=== PATIENT | female | born 1960 | race Caucasian/White ===

== ENCOUNTER 2025-01-18 17:41 | Observation (INO) ==
[2025-01-18] MEDS ORDERED: ZOFRAN INJ 4 MG VIAL ONE (17:49)
[2025-01-18] MEDS: ZOFRAN INJ 4 MG VIAL IVP ONE (18:08)
[2025-01-18] MEDS ORDERED: NS 1,000 ML IV 1,000 ML ONE (18:36)
[2025-01-18 18:48] LABS: MEAN PLATELET VOLUME 7.6 fL (7.4-11.0); RED CELL DISTRIBUTION WIDTH 13.9 % (11.6-16.5)
--- NOTE | 2025-01-18 19:24 | DR.GENAD ---
HPI Time Seen Time Seen by Provider: 01/18/25 18:30 PCP Primary Care Physician: Complaint/Symptoms Chief Complaint Doctors Comments: 64-year-old female had a iliac stent placed; gross swelling right inner upper thigh with pain per patient. Chief Complaint:: pt's son states that she had surgery today with and had a stent placed in the left leg. Since her surgery she has been in alot of pain and vomiting. pt states her left leg has been swelling up near her groin area. COVID-19 Coronavirus risk:travel/contact w/high risk person: No Has patient experienced Coronavirus symptoms: No Source History Provided: Patient and Family Member Mode of Arrival Mode of Arrival: Wheelchair Timing Onset of Chief Complaint: 01/18/25 PMH PMH Past Medical History: Yes Past Medical History: GERD and Hypertension Past Medical History Comment: polycystic kidney disease, spinal bifida, heart murmur, Past Surgical History: Yes Surgical History: Angioplasty/Stents, Hysterectomy and Other Past Surgical History Comment: esophagus stretched Family History History of Family Medical Conditions: Yes Family Medical History: Cancer and Hypertension Social History Does patient currently use any type of tobacco product: Yes Type of Tobacco Use: Cigarettes Alcohol Use: DAILY Do you use any recreational Drugs:: No Lives With: Alone Lives Where: Home Travel Risk Coronavirus risk:travel/contact w/high risk person: No Has patient experienced Coronavirus symptoms: No Infectious screening Have you traveled outside the country in the last 6 months?: No Isolation: Standard ROS Review of Systems Constitutional: No Symptoms Reported (Painful upper left leg with acute swelling. ) and See HPI Respiratoy: No Symptoms Reported Cardiovascular: No Symptoms Reported Gastrointestinal/Abdominal: No Symptoms Reported Neurological: No Symptoms Reported Musculoskeletal: No Symptoms Reported All Other Systems: Reviewed and Negative PE Vital Signs Vitals: Vital Signs Temperature 97.7 F Pulse Rate [Left] 75 Pulse Rate 62 Respiratory Rate 16 Respiratory Rate 20 Blood Pressure [Right Arm] 132/77 Blood Pressure [Right Arm] 121/75 Blood Pressure [Right Arm] 128/70 Blood Pressure 86/54 Blood Pressure 82/49 O2 Sat by Pulse Oximetry 100 O2 Sat by Pulse Oximetry 100 General Limitations: No Limitations Head Head Exam: Normal Inspection Eyes Eye exam: Normal Appearance ENT ENT Exam: Normal Exam Neck Neck Exam: Normal Inspection Chest Chest Inspection: Normal Inspection Respiratory Respiratory Exam: Normal Lung Sounds Bilat Respiratory Exam: Bilateral: Clear to Auscultation Cardiovascular Cardiovascular Exam: Regular Rate and Normal Rhythm Abdominal Exam Abdominal Exam: Normal Inspection, Normal Bowel Sounds and Soft Extremities Extremities Exam: Tenderness, Edema and Other (Gross swelling and ecchymosis of the proximal aspect of the left anterior thigh secondary to stent placement earlier today. Good capillary refill tenderness at the site of the swelling remainder of the extremity is warm and nontender to palpation. He still has good pulses distally. Currently ther) Back Back Exam: Normal Inspection Neurologic Neurological Exam: Alert and Oriented X3 COURSE Treatment Treatment: 5 pound send black bag placed on the site of bleeding and swelling left upper thigh Reevaluation 1st: Unchanged 2nd: Improved Consultation Consultation Comments: Dr. Wilkerson called the ER and let us know this patient was coming to the ER because of the swelling at the stent insertion site of the left upper left leg. After evaluation I discussed the findings with Dr. Wilkerson and we had placed a 5 pound sand bag on the site which helped tremendously and the patient even states it felt much better with the sandbag. The patient will be admitted she be started on IV fluids basic labs and Dr. Wilkerson said he would continue the orders himself. [facility] Labs Reviewed 01/18/25 18:00 Laboratory: WBC 14.0 X10^3/uL (3.6-10.0) H 01/18/25 18:00 RBC 3.39 X10^6/uL (3.5-5.4) L 01/18/25 18:00 Hgb 11.4 g/dL (12.0-16.0) L 01/18/25 18:00 Hct 34.4 % (36.0-47.0) L 01/18/25 18:00 MCV 101.6 fL (80.0-100.0) H 01/18/25 18:00 MCH 33.7 pg (27.0-34.0) 01/18/25 18:00 MCHC 33.2 g/dL (33.0-35.0) 01/18/25 18:00 RDW 13.9 % (11.6-16.5) 01/18/25 18:00 Plt Count 324 X10^3/uL (150.0-450.0) 01/18/25 18:00 MPV 7.6 fL (7.4-11.0) 01/18/25 18:00 Neut % (Auto) 57.1 % (42.0-75.0) 01/18/25 18:00 Lymph % (Auto) 36.1 % (21.0-51.0) 01/18/25 18:00 [place] % (Auto) 5.7 % (0.0-13.0) 01/18/25 18:00 Eos % (Auto) 0.4 % (0.9-2.9) L 01/18/25 18:00 Baso % (Auto) 0.7 % (0.2-1.0) 01/18/25 18:00 Neut # (Auto) 8.0 x10^3/uL (2.2-4.8) H 01/18/25 18:00 Lymph # (Auto) 5.1 X10^3/uL (1.3-2.9) H 01/18/25 18:00 [place] # (Auto) 0.8 x10^3/uL (0.3-0.8) 01/18/25 18:00 Eos # (Auto) 0.1 x10^3/uL (0.0-0.2) 01/18/25 18:00 Baso # (Auto) 0.1 X10^3/uL (0.0-0.1) 01/18/25 18:00 Absolute Nucleated RBC 0.1 /100WBC 01/18/25 18:00 Opioid Opioid Risk Tool Age ([place] if 16-45): No History of Preadolescent Sexual Abuse: No Total: 0 Total Score Risk Category: Low Risk Copyright: Amilcar ADDISON predicting aberrant behaviors Discharge Plan Diagnosis Discharge Problem: Hematoma of left thigh Discharge Plan Patient Disposition: ADMITTED INPATIENT Condition: Stable Prescriptions: No Action famotidine 20 mg tablet 20 mg PO DAILY aspirin 81 mg Tablet 81 mg PO DAILY lisinopril 40 mg tablet 40 mg PO QDAY Eliquis 5 mg tablet 5 mg PO QDAY Health Concerns: Post Hospitalization: new medications and changes needed to prevent readmission or further decline. Pt educated and given instructions on all concerns. Plan of Treatment: Continue with present treatment and follow up plan. Pt is to keep follow up appointment as instructed and take medications as ordered. Orders to Discharge Patient Discharge Orders: Transfer (Routine); Ordered 01/18/25 Ordered By: Meera Oneal Follow ups/Referrals Follow ups/Referrals: NFD,None [Primary Care Provider] - 3 days Instructions Stand Alone Forms: Find Help Web Site, Post Hospital Follow Up Care Print Language: [place]
[2025-01-18] MEDS: NS 1,000 ML IV 1,000 ML IV SCH (19:33)
[2025-01-18] MEDS ORDERED: TYLENOL 325 MG TAB PO PRN (23:33)
[2025-01-18] MEDS ORDERED: CONSULT PHARMACY - POTASSIUM & MAGNESIUM XX SCH (23:33)
[2025-01-18] MEDS ORDERED: ULTRAM PO PRN (23:33)
[2025-01-18] MEDS ORDERED: ZOFRAN INJ 4 MG VIAL IVP PRN (23:33)
[2025-01-18] MEDS ORDERED: MORPHINE SULFATE INJ 2 MG INJ IVP PRN (23:33)
[2025-01-18] MEDS ORDERED: NORCO 5/325 MG TAB PO PRN (23:33)
[2025-01-19 00:16] VITALS: BMI 18.8
[2025-01-19 04:50] LABS: MEAN PLATELET VOLUME 7.2 fL (7.4-11.0); RED CELL DISTRIBUTION WIDTH 14.1 % (11.6-16.5)
[2025-01-19 05:07] LABS: COR CA(FOR HYPOALB) 9.3 mg/dL (8.5-10.1); CREATININE 0.68 mg/dL (0.55-1.02); eGFR NON BLACK RACES > 60 (>60)
[2025-01-19] MEDS: ASPIRIN EC 81 MG PO SCH (09:24)
[2025-01-19] MEDS: ZESTRIL TAB 40 MG PO SCH (09:24)
[2025-01-19] MEDS: PEPCID TAB 20 MG PO SCH (09:25)
--- NOTE | 2025-01-19 11:21 | DR.H&P ---
H&P History & Physical for Day of: H&P Date: 01/18/25 Chief Complaint Chief Complaint: Swelling in left groin after puncture of left femoral vein several hours previous with stent placement of the left external iliac vein History of Present Illness History of Present Illness: This is a patient who is 64 years of age and has history of chronic DVT of the left leg who has had recent venogram showing significant stenosis of the femoral vein which was balloon dilated. We planned to stent the compressed left iliac vein but did not have a stent the appropriate size therefore we delayed and performed the stenting of the left iliac vein as an outpatient yesterday at the [facility] in [place], [place]. The patient tolerated the procedure very well .She been off her Eliquis for 4 days previously and had no hematoma at the end of the case and for several hours after that. She was home resting on the sofa and noted swelling in her left groin. She came to emergency room for evaluation. Hemoglobin was stable at 11.4 g. We applied pressure to this area and it had no further increase in size. She was be admitted for observation. Past Medical History Past Medical History: GERD and Hypertension Additional Medical History: deep vein thrombosis Past Surgical History Surgical History: Angioplasty/Stents and Hysterectomy Family History Family Medical History: Cancer and Hypertension Social History Does patient currently use any type of tobacco product: Yes Type of Tobacco Use: Cigarettes Packs per day or dips/chews per day: 1 Alcohol Use: Occasionally Drug Use: None Medications Home Medications: Home Medications Medication Instructions Recorded Confirmed Type apixaban 5 mg tablet (Eliquis) 5 mg PO QDAY 01/18/25 1 03/21/24 History aspirin 81 mg tablet 81 mg PO DAILY 01/18/2510/05 History famotidine 20 mg tablet 20 mg PO DAILY 01/18/2510/05 History lisinopril 40 mg tablet 40 mg PO QDAY 01/18/2501/18 History Allergies Allergies Allergy/AdvReac Type Severity Reaction Status Date / Time dexamethasone (From Decadron) Allergy Verified 12/29/24 07:07 Labs 01/19/25 04:23 01/19/25 04:23 Labs: Laboratory WBC 9.3 X10^3/uL (3.6-10.0) 01/19/25 04:23 RBC 3.09 X10^6/uL (3.5-5.4) L 01/19/25 04:23 Hgb 10.7 g/dL (12.0-16.0) L 01/19/25 04:23 Hct 31.4 % (36.0-47.0) L 01/19/25 04:23 MCV 101.6 fL (80.0-100.0) H 01/19/25 04:23 MCH 34.6 pg (27.0-34.0) H 01/19/25 04:23 MCHC 34.1 g/dL (33.0-35.0) 01/19/25 04:23 RDW 14.1 % (11.6-16.5) 01/19/25 04:23 Plt Count 234 X10^3/uL (150.0-450.0) 01/19/25 04:23 MPV 7.2 fL (7.4-11.0) L 01/19/25 04:23 Neut % (Auto) 69.6 % (42.0-75.0) 01/19/25 04:23 Lymph % (Auto) 23.4 % (21.0-51.0) 01/19/25 04:23 [place] % (Auto) 6.1 % (0.0-13.0) 01/19/25 04:23 Eos % (Auto) 0.5 % (0.9-2.9) L 01/19/25 04:23 Baso % (Auto) 0.4 % (0.2-1.0) 01/19/25 04:23 Neut # (Auto) 6.5 x10^3/uL (2.2-4.8) H 01/19/25 04:23 Lymph # (Auto) 2.2 X10^3/uL (1.3-2.9) 01/19/25 04:23 [place] # (Auto) 0.6 x10^3/uL (0.3-0.8) 01/19/25 04:23 Eos # (Auto) 0.0 x10^3/uL (0.0-0.2) 01/19/25 04:23 Baso # (Auto) 0.0 X10^3/uL (0.0-0.1) 01/19/25 04:23 Absolute Nucleated RBC 0.2 /100WBC 01/19/25 04:23 Sodium 138 mmol/L (136-145) 01/19/25 04:23 Corrected Sodium TNP 01/19/25 04:23 Potassium 4.2 mmol/L (3.5-5.1) 01/19/25 04:23 Chloride 104 mmol/L (98-107) 01/19/25 04:23 Carbon Dioxide 24.3 mmol/L (21-32) 01/19/25 04:23 BUN 13 mg/dL (7-18) 01/19/25 04:23 Creatinine 0.68 mg/dL (0.55-1.02) 01/19/25 04:23 Est GFR (MDRD) Af Amer > 60 (>60) 01/19/25 04:23 Est GFR (MDRD) Non-Af > 60 (>60) 01/19/25 04:23 Glucose 65 mg/dL (65-99) 01/19/25 04:23 Calcium 8.4 mg/dL (8.5-10.1) L 01/19/25 04:23 Corrected Calcium 9.3 mg/dL (8.5-10.1) 01/19/25 04:23 Total Bilirubin 0.50 mg/dL (0.2-1.0) 01/19/25 04:23 AST 19 Units/L (15-37) 01/19/25 04:23 ALT 12 Units/L (12-78) 01/19/25 04:23 Alkaline Phosphatase 65 Units/L (46-116) 01/19/25 04:23 Total Protein 6.1 g/dL (6.4-8.2) L 01/19/25 04:23 Albumin 2.9 g/dL (3.4-5.0) L 01/19/25 04:23 Globulin 3.2 g/dL (2.5-4.5) 01/19/25 04:23 Albumin/Globulin Ratio 0.9 Ratio (1.1-2.1) L 01/19/25 04:23 Review of Systems Constitutional: See HPI Eyes: No Symptoms Reported ENT: No Symptoms Reported Respiratory: No Symptoms Reported Cardiovascular: No Symptoms Reported Gastrointestinal: No Symptoms Reported Genitourinary: No Symptoms Reported Musculoskeletal: No Symptoms Reported Skin: No Symptoms Reported Neurological: No Symptoms Reported Physical Exam Vital Signs: Vital Signs Temperature 97.8 F Temperature 98.2 F Pulse Rate [Left] 83 Pulse Rate [Left] 85 Respiratory Rate 16 Respiratory Rate 16 Blood Pressure [Right Arm] 102/55 Blood Pressure [Right Arm] 123/61 O2 Sat by Pulse Oximetry 94 O2 Sat by Pulse Oximetry 97 Oriented: Normal, Time, Person and Place Eyes: Normal Ear: Normal Nose: Normal Throat: Normal Respiratory: Clear Throughout Cardiovascular: Normal and Other (Hematoma of left groin. Patient has been hemodynamically stable. Hematoma was marked and has not increased in size since initial evaluation in the emergency room) : Normal Auscultation: Bowel Sounds: Normal Palpation: Normal Tenderness: Normal Skin: Normal Musculoskeletal: Normal Psychiatric: Normal Mood Description: Calm Affect: Normal Speech Pattern: Clear and Appropriate Assessment/Plan (1) Hematoma of left thigh: Status: Acute Plan: Will be admitted for observation. Will apply pressure to this area and monitor her hemoglobin very carefully. Review H&P Reviewed: Yes
[2025-01-19 11:55] VITALS: BP 101/63; PULSE 75; RESP 17; TEMP 97.9; O2SAT 99
--- NOTE | 2025-01-19 13:46 | W.DIS.FURT ---
Summary of Discharge Discharge Summary of Date Date of Exam: 01/19/25 Admission Date Date of Admission: 01/18/25 Admission Diagnosis Patient Problems (Updated 01/18/25 @ 21:17 by Meera Oneal) Hematoma of left thigh (Acute) S70.12XA Hospital Course: This is a 64-year-old female who had stenting of the left iliac vein yesterday as an outpatient and did well during the case and in the PACU but several hours later developed a hematoma in her left groin with pain. She was seen in the emergency room and was admitted for observation. Hemoglobin has been stable. It was 11.4 in admission and is now 10.7. Swelling is markedly decreased and the pain is resolved. She has a warm left foot. Her Eliquis had been held for 4 days prior to this. Patient had some hypotension responded to IV fluids , now doing well . She may restart Eliquis tomorrow. She already has follow-up to see me next week in the office. Vital Signs: Vital Signs (72 hours) 01/18/25 17:59 01/18/25 18:20 01/18/25 18:53 Temperature 97.7 F Pulse Rate 62 Pulse Rate [Left] Respiratory Rate 20 Blood Pressure 82/49 86/54 Blood Pressure [Right Arm] 128/70 O2 Sat by Pulse Oximetry 100 Oxygen Delivery Method Room Air 01/18/25 19:21 01/18/25 19:37 01/18/25 19:48 Temperature Pulse Rate Pulse Rate [Left] 75 Respiratory Rate 16 Blood Pressure Blood Pressure [Right Arm] 121/75 132/77 O2 Sat by Pulse Oximetry 100 Oxygen Delivery Method Room Air 01/18/25 21:41 01/18/25 22:50 01/18/25 22:50 Temperature 98 F Pulse Rate Pulse Rate [Left] 76 Respiratory Rate 16 Blood Pressure Blood Pressure [Right Arm] 142/78 144/65 O2 Sat by Pulse Oximetry 98 Oxygen Delivery Method Room Air Room Air 01/19/25 00:00 01/19/25 04:00 01/19/25 07:00 Temperature 97.7 F 98.2 F Pulse Rate Pulse Rate [Left] 77 85 Respiratory Rate 18 16 Blood Pressure Blood Pressure [Right Arm] 151/73 123/61 O2 Sat by Pulse Oximetry 99 97 Oxygen Delivery Method Room Air Room Air Room Air 01/19/25 08:00 01/19/25 11:54 Temperature 97.8 F 97.9 F Pulse Rate Pulse Rate [Left] 83 75 Respiratory Rate 16 17 Blood Pressure Blood Pressure [Right Arm] 102/55 101/63 O2 Sat by Pulse Oximetry 94 L 99 Oxygen Delivery Method Room Air Room Air Labs: Laboratory Last Values WBC 9.3 X10^3/uL (3.6-10.0) 01/19/25 04:23 RBC 3.09 X10^6/uL (3.5-5.4) L 01/19/25 04:23 Hgb 10.7 g/dL (12.0-16.0) L 01/19/25 04:23 Hct 31.4 % (36.0-47.0) L 01/19/25 04:23 MCV 101.6 fL (80.0-100.0) H 01/19/25 04:23 MCH 34.6 pg (27.0-34.0) H 01/19/25 04:23 MCHC 34.1 g/dL (33.0-35.0) 01/19/25 04:23 RDW 14.1 % (11.6-16.5) 01/19/25 04:23 Plt Count 234 X10^3/uL (150.0-450.0) 01/19/25 04:23 MPV 7.2 fL (7.4-11.0) L 01/19/25 04:23 Neut % (Auto) 69.6 % (42.0-75.0) 01/19/25 04:23 Lymph % (Auto) 23.4 % (21.0-51.0) 01/19/25 04:23 [place] % (Auto) 6.1 % (0.0-13.0) 01/19/25 04:23 Eos % (Auto) 0.5 % (0.9-2.9) L 01/19/25 04:23 Baso % (Auto) 0.4 % (0.2-1.0) 01/19/25 04:23 Neut # (Auto) 6.5 x10^3/uL (2.2-4.8) H 01/19/25 04:23 Lymph # (Auto) 2.2 X10^3/uL (1.3-2.9) 01/19/25 04:23 [place] # (Auto) 0.6 x10^3/uL (0.3-0.8) 01/19/25 04:23 Eos # (Auto) 0.0 x10^3/uL (0.0-0.2) 01/19/25 04:23 Baso # (Auto) 0.0 X10^3/uL (0.0-0.1) 01/19/25 04:23 Absolute Nucleated RBC 0.2 /100WBC 01/19/25 04:23 Sodium 138 mmol/L (136-145) 01/19/25 04:23 Corrected Sodium TNP 01/19/25 04:23 Potassium 4.2 mmol/L (3.5-5.1) 01/19/25 04:23 Chloride 104 mmol/L (98-107) 01/19/25 04:23 Carbon Dioxide 24.3 mmol/L (21-32) 01/19/25 04:23 BUN 13 mg/dL (7-18) 01/19/25 04:23 Creatinine 0.68 mg/dL (0.55-1.02) 01/19/25 04:23 Est GFR (MDRD) Af Amer > 60 (>60) 01/19/25 04:23 Est GFR (MDRD) Non-Af > 60 (>60) 01/19/25 04:23 Glucose 65 mg/dL (65-99) 01/19/25 04:23 Calcium 8.4 mg/dL (8.5-10.1) L 01/19/25 04:23 Corrected Calcium 9.3 mg/dL (8.5-10.1) 01/19/25 04:23 Total Bilirubin 0.50 mg/dL (0.2-1.0) 01/19/25 04:23 AST 19 Units/L (15-37) 01/19/25 04:23 ALT 12 Units/L (12-78) 01/19/25 04:23 Alkaline Phosphatase 65 Units/L (46-116) 01/19/25 04:23 Total Protein 6.1 g/dL (6.4-8.2) L 01/19/25 04:23 Albumin 2.9 g/dL (3.4-5.0) L 01/19/25 04:23 Globulin 3.2 g/dL (2.5-4.5) 01/19/25 04:23 Albumin/Globulin Ratio 0.9 Ratio (1.1-2.1) L 01/19/25 04:23 Impression: see hospital course Reason For Visit: HEMATOMIA LEFT THIGH Discharge Date Discharge Date: 01/19/25 Discharge Diagnosis All Active Problems (Updated 01/18/25 @ 21:17 by Meera Oneal) Hematoma of left thigh (Acute) Plan of Treatment: Continue with present treatment and follow up plan. Pt is to keep follow up appointment as instructed and take medications as ordered. Discharge Medications Discharge Medications: dexamethasone (From Decadron) Allergy (Verified 12/29/24 07:07) CONTINUE taking the following medications apixaban 5 mg tablet (Eliquis) 5 mg PO QDAY 01/18/25 [History] aspirin 81 mg tablet 81 mg PO DAILY 01/18/25 [History] famotidine 20 mg tablet 20 mg PO DAILY 01/18/25 [History] lisinopril 40 mg tablet 40 mg PO QDAY 01/18/25 [History] Discharge Disposition Assessment: see hospital course Discharge Plan Discharge Plan Hospital Course: This is a 64-year-old female who had stenting of the left iliac vein yesterday as an outpatient and did well during the case and in the PACU but several hours later developed a hematoma in her left groin with pain. She was seen in the emergency room and was admitted for observation. Hemoglobin has been stable. It was 11.4 in admission and is now 10.7. Swelling is markedly decreased and the pain is resolved. She has a warm left foot. Her Eliquis had been held for 4 days prior to this. Patient had some hypotension responded to IV fluids , now doing well . She may restart Eliquis tomorrow. She already has follow-up to see me next week in the office. Patient Disposition: 01 HOME, SELF-CARE Condition: Stable Health Concerns: Post Hospitalization: new medications and changes needed to prevent readmission or further decline. Pt educated and given instructions on all concerns. Care Plan Goals: Problem: Pain/Alteration in Comfort Goal: Improve/ Resolve Pain; Achieve Pain Tolerance Instructions: Take pain medications as prescribed. Contact your primary care provider if your pain is unrelieved or worsens. Follow up with primary care provider as directed. Plan of Treatment: Continue with present treatment and follow up plan. Pt is to keep follow up appointment as instructed and take medications as ordered. Assessment: see hospital course Prescription drug monitoring program results: PDMP was not reviewed Prescriptions: Continued famotidine 20 mg tablet 20 mg PO DAILY aspirin 81 mg Tablet 81 mg PO DAILY lisinopril 40 mg tablet 40 mg PO QDAY Eliquis 5 mg tablet 5 mg PO QDAY Orders to Discharge Patient Discharge Orders: Discharge (Routine); Ordered 01/19/25 Ordered By: Raj Wilkerson Follow ups/Referrals Follow ups/Referrals: Raj Wilkerson [STAFF PHYSICIAN, Unknown] - 02/01/25 2:15 pm Instructions Instructions: Contusion, [id number] Stand Alone Forms: Excuse From Work or School, Find Help Web Site, Post Hospital Follow Up Care Print Language: MAC[place]
== END 2025-01-19 14:10 | disposition home or self-care (01) ==
LOC: MED/SURG 17:41 → ER 17:41 → MED/SURG 22:48
PROVIDERS: ADMIT Surgery; ATTEND Surgery
DX: I87.1 Compression of vein; Z86.718 Personal history of other venous thrombosis and embolism; D64.89 Other specified anemias; K21.9 Gastro-esophageal reflux disease without esophagitis; M79.652 Pain in left thigh; Z72.0 Tobacco use; R79.89 Other specified abnormal findings of blood chemistry; Z79.899 Other long term (current) drug therapy; I10 Essential (primary) hypertension; S70.12XA Contusion of left thigh, initial encounter; I95.89 Other hypotension; E83.51 Hypocalcemia; Z98.890 Other specified postprocedural states; Z79.01 Long term (current) use of anticoagulants